=== PATIENT | female | born 1985 ===

== ENCOUNTER 2017-06-05 07:25 | Emergency (ER) | payer BC, OTHER ==
[2017-06-05] MEDS ORDERED: Ketorolac INJ* 60 MG/2 ML VIAL IM ONE (08:21)
[2017-06-05 09:29] VITALS: BP 133/86
--- NOTE | 2017-06-05 09:29 | RAD ---
INDICATION: Low back and buttocks pain COMPARISON: None TECHNIQUE: An AP view of the pelvis and AP views of the hip in neutral and abducted position were obtained FINDINGS: Bones: There are no acute bony findings. Joint spaces: The hips articulate normally. The joint spaces are preserved. SI joints/symphysis: The SI joints and symphysis are intact. Other: None IMPRESSION: NO ACUTE BONY FINDINGS.
--- NOTE | 2017-06-05 09:34 | RAD ---
Indication: LEFT lower back and buttock pain. Comparison: April 26, 2009 CT. Technique: AP, lateral, and oblique views lumbar sacral spine. Report: Negative for fracture, spondylolysis, or spondylolisthesis. Mild vertebral endplate osteophytosis most prominent at L3-L4. Moderately severe L3-L4, mild L4-L5, and moderate L5-S1 disc space narrowing. Unremarkable paraspinal soft tissue contours. IMPRESSION: Progression of degenerative spondylosis compared with the 2009 CT. No acute traumatic injury evident.
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
== END 2017-06-05 10:08 | disposition home or self-care (01) ==
LOC: UCEAST 07:25
DX: M47.9 Spondylosis, unspecified (principal); M62.838 Other muscle spasm; M54.10 Radiculopathy, site unspecified; Z88.6 Allergy status to analgesic agent; Z88.5 Allergy status to narcotic agent
CPT/HCPCS: 72110; 81003; 84702; 96372; 99212; G0463; J1885